=== PATIENT | male | born 1985 | race Hispanic/Latino ===

== ENCOUNTER 2024-08-29 11:11 | Emergency (ER) | payer OTHER, SELFPAY ==
[2024-08-29] VITALS (7 sets, daily range): BP systolic 103–128; BP diastolic 52–85; BMI 33.5
--- NOTE | 2024-08-29 11:48 | EDRN ---
Pt arrives for high BP, swelling of his agatha feet, head pressure, pressure all around head that has been going on keegan 1.5 weeks. On nifedipine. SOB. Pt has chronic inflammatory polyneuropathy.
--- NOTE | 2024-08-29 11:53 | EDRN ---
Marco Antonio Self APARTMENT COORDINATOR in room w/ -pt
--- NOTE | 2024-08-29 12:00 | ED.GENMED ---
History of Present Illness
<TATO Blount - Last Filed: 08/29/24 16:41>
General
Chief Complaint: Blood Pressure Problem
Source: patient
Exam Limitations: none
Time Seen by Provider: 08/29/24 11:35
Nursing documentation reviewed up to this point in time: agreed with
History of Present Illness
History of Present Illness:
Patient is a 39-year-old male past medical history of chronic immune demyelinating polyneuropathy presents to the ER for evaluation. bedside reports patient has had a headache shortness of breath dizziness for the past week and a half
associate with lower extremity swelling. She reports he has noticed swelling to the lateral ankles. He has also had some blurry vision and light sensitivity. He was seen by family doctor a week ago and started on nifedipine. Today is
concerned because symptoms are not getting better. They called PCP recommended they come to the ER.
He complains of a headache presently and does not have a history of headaches.
Patient is not currently treated for his chronic immune demyelinating polyneuropathy. In his past he did receive IVIG and had plasmapheresis.
He is not a smoker, no alcohol use in 6 months.
No cardiac history.
Past History
<TATO Blount - Last Filed: 08/29/24 16:41>
Past History
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
ED Past Surgical History: Appendectomy
Social History
Personal:
Living: with family
Employment: Employed
Review of Systems
<TATO Blount - Last Filed: 08/29/24 16:41>
Review of Systems
Allergies reviewed?: Yes
All Other Systems: ROS reviewed and negative except as documented in HPI and ROS
Constitutional: Reports no symptoms
EENT: Reports other (blurred vision)
Respiratory: Reports trouble breathing
Cardiac: Reports other (off/on mild chest pain )
ABD/GI: Reports nausea
: Reports no symptoms
Musculoskeletal: Reports other (swelling to ankles)
Skin: Reports no symptoms
Neurological: Reports headache
Psychiatric: Reports no symptoms
Phy Exam
<TATO Blount - Last Filed: 08/29/24 16:41>
General Physical Exam
General Presentation: no apparent distress
General age: appears stated age
General Skin: warm and dry
General Habitus: normal
General Mental: alert
General Hydration: appears well hydrated
ENT Exam
ENT Exam: EOMI
Eye Exam
Eye Exam: PERRL and EOMI
Eye Exam General: PERRL: bilateral and EOM intact: bilateral
Pupil Exam: Bilateral: round and reactive
Cardiovascular Exam
Cardiovascular Exam: regular rate/rhythm, no murmur and normal peripheral pulses
Pulmonary Exam
Pulmonary Exam: lungs clear and no respiratory distress
Neurological Exam
Neurological Exam: alert and oriented x3
Musculoskeletal Exam
Musculoskeletal Exam: other (mild b/l ankle swelling )
Skin Exam
Skin Exam: normal color and warm/dry
Psychiatric Exam
Psychiatric Exam: normal mood/affect
Course
<TATO Blount - Last Filed: 08/29/24 16:41>
Orders/Labs/Results
Orders:
Orders
08/29/24 11:59
CT Head W/o Iv Contrast Urgent
Comment:
Reason For Exam: headache
08/29/24 12:00
Electrocardiogram (*1) Stat
Reason for Study: Other
Other Reason for Exam: chest pain
Cardiac Monitoring- Treatment ONCE
EKG- Treatment ONCE
IV Insert/Care/Rem.- Treatment PRN
Diphenhydramine [Benadryl] 25 mg IV NOW STA
Metoclopramide [Reglan] 10 mg IV NOW STA
CR Chest - 2 Views Urgent
Comment:
Reason For Exam: sob
08/29/24 12:14
Complete Blood Count/With Diff Urgent
Comprehensive Metabolic Panel Urgent
NT-proBNP Urgent
Troponin I Urgent
Abnormal Lab Results
08/29/24
12:14
WBC 11.6 H 10^3/uL
(4.8-10.8)
MCH 31.1 H pg
(27.0-31.0)
Abs Immat Gran (auto) 0.1 H 10^3/uL
(0-0.05)
Absolute Neuts (auto) 8.0 H 10^3/uL
(1.4-6.5)
Absolute Monos (auto) 1.0 H 10^3/uL
(0.1-0.6)
Immature Gran % 0.9 H %
(0-0.5)
Lymphocytes % 19.4 L %
(20.5-51.1)
Chloride 109 H mmol/L
(98-107)
Glucose 111 H mg/dl
(70-99)
08/29/24 12:14
08/29/24 12:14
Vital Signs
Initial and Last Documented VS:
Initial Vital Signs
Temp Pulse Resp BP Pulse Ox
97.3 F 87 18 128/85 97
08/29/24 11:16 08/29/24 11:16 08/29/24 11:16 08/29/24 11:16 08/29/24 11:16
Last Documented Vital Signs
Temp Pulse Resp BP Pulse Ox
97.3 F 80 22 124/84 98
08/29/24 11:16 08/29/24 14:45 08/29/24 14:45 08/29/24 15:00 08/29/24 15:00
Customer Assistant consulted with Physician
Customer Assistant consulted with physician?: Yes
Name of Physician Consulted: Man
<Sebastian Conway, DO - Last Filed: 08/29/24 14:49>
Orders/Labs/Results
Orders:
Orders
08/29/24 11:59
CT Head W/o Iv Contrast Urgent
Comment:
Reason For Exam: headache
08/29/24 12:00
Electrocardiogram (*1) Stat
Reason for Study: Other
Other Reason for Exam: chest pain
Cardiac Monitoring- Treatment ONCE
EKG- Treatment ONCE
IV Insert/Care/Rem.- Treatment PRN
Diphenhydramine [Benadryl] 25 mg IV NOW STA
Metoclopramide [Reglan] 10 mg IV NOW STA
CR Chest - 2 Views Urgent
Comment:
Reason For Exam: sob
08/29/24 12:14
Complete Blood Count/With Diff Urgent
Comprehensive Metabolic Panel Urgent
NT-proBNP Urgent
Troponin I Urgent
Abnormal Lab Results
08/29/24
12:14
WBC 11.6 H 10^3/uL
(4.8-10.8)
MCH 31.1 H pg
(27.0-31.0)
Abs Immat Gran (auto) 0.1 H 10^3/uL
(0-0.05)
Absolute Neuts (auto) 8.0 H 10^3/uL
(1.4-6.5)
Absolute Monos (auto) 1.0 H 10^3/uL
(0.1-0.6)
Immature Gran % 0.9 H %
(0-0.5)
Lymphocytes % 19.4 L %
(20.5-51.1)
Chloride 109 H mmol/L
(98-107)
Glucose 111 H mg/dl
(70-99)
08/29/24 12:14
08/29/24 12:14
Vital Signs
Initial and Last Documented VS:
Initial Vital Signs
Temp Pulse Resp BP Pulse Ox
97.3 F 87 18 128/85 97
08/29/24 11:16 08/29/24 11:16 08/29/24 11:16 08/29/24 11:16 08/29/24 11:16
Last Documented Vital Signs
Temp Pulse Resp BP Pulse Ox
97.3 F 80 22 124/84 98
08/29/24 11:16 08/29/24 14:45 08/29/24 14:45 08/29/24 15:00 08/29/24 15:00
<TATO Blount - Last Filed: 08/29/24 16:41>
MDM/Problems Addressed
MDM/Problems Addressed:
As documented patient is a 39-year-old male with past medical history as documented above presents for evaluation. He has not felt well for the past week complaining of dizziness elevated blood pressure shortness of breath he noted mild swelling to
lower extremities and has had a headache and blurry vision. Patient presents awake alert in no acute distress he is nontoxic no meningismus no recent fever or chills. His lungs are clear on exam there is no obvious swelling. He is afebrile white
count very minimally elevated stable hemoglobin unremarkable chemistries.
Troponin BNP negative chest x-ray negative CT negative.
Patient received medications for headache and feeling much better.
No acute concerning findings during patient's workup here in the ER however will need outpatient follow-up family doctor. Pt is stable for d/c home.
<TATO Blount - Last Filed: 08/29/24 16:41>
*Radiology
Radiology exam reviewed: radiology read reviewed
*Pulse Oximetry
Patient hypoxic: no
*EKG
Interpreted by ED Provider?: Yes
Interpretation: abnormal
Comparison EKG: no comparison EKG present
Heart Rate: 75
Rate: normal
Rhythm: sinus
Ischemia: non-specific ST changes
*Critical Care Note
Total Time (30-74mins, 75-104mins- exclusive of procedures): Not Applicable
ED Attending Note
<TATO Blount - Last Filed: 08/29/24 16:41>
-
Portions of this chart may have been created with voice recognition software.� Occasional wrong word or��sound alike� substitutions may have occurred due to the inherent limitations of voice recognition software.
<Sebastian Conway DO - Last Filed: 08/29/24 14:49>
ED Attending Note
Patient seen and examined by attending physician: Yes
I performed the substantive portion of visit, reviewed & personally made and approve the management plan that is documented in note by myself or SUNI.: Yes
ED Attending Note:
I agree with Krystle's note
Patient presents complaining of headache, dizziness, shortness of breath, and some swelling in the lower extremities. No focal neurologic deficits. No chest pain
General: Awake, Alert, Oriented X3. No acute distress.
Vitals: unremarkable
Head: Atraumatic
Eyes: Pupils equal, EOMI
Throat: Airway intact, no exudates
Neck: Trachea midline
Lungs: Clear and equal b/l
Heart: Regular rate, no murmurs
Abd: Soft, Nontender, No pulsatile mass
Neuro: Nonfocal
Skin: Warm, dry, no rash
Extremities: pulses equal b/l, trace edema
Patient had been given Reglan and Benadryl for his headache. His headache is essentially resolved. He does not feel short of breath at this time. His physical exam is not suggestive of a unstable process nor does he have any significant
abnormalities on his radiographic or blood studies. Patient is suitable for discharge and outpatient follow-up.
Discharge Plan
Departure
Patient Disposition: Home (Routine Discharge)
Date of Disposition: 08/29/24
Time of Disposition: 14:54
Patient with high blood pressure during this ER visit?: No
Condition: Fair
Covid-19: Not Applicable
Discharge Problem:
Headache
Instructions: Headache in adults - ED discharge instructions
Prescriptions:
No Action
prednisone 10 MG tablet
10 mg PO .TAPER Qty: 30 0RF
Rx Instructions:
Take 50mg daily for 2 days, 40mg daily for 2 days, 30mg daily for 2 days, 20mg daily for 2 days, 10mg daily for 2 days
albuterol sulfate 1 PUFF HFA aerosol inhaler
2 puff inhalation QIDPRN PRN (Reason: SOB) Qty: 1 0RF
Referrals:
Kait Greene MD [Family Provider] -
Activity Restrictions/Additional Instructions:
As discussed your workup in the ER was unremarkable. Please follow-up with your family doctor for continued evaluation of symptoms and return if any worsening of symptoms.
Interventions
Interventions:
*Risk Screen - Suicide Last Done: 08/29/24 11:16
*General Assessment Last Done: 08/29/24 11:46
*Neglect/Abuse Screening Last Done: 08/29/24 11:16
*ED- Fall Risk Assessment Last Done: 08/29/24 11:46
*ED COVID-19 Vaccine History Last Done: 08/29/24 11:46
*Nursing Disposition Last Done: 08/29/24 15:15
ED- Cardiac Assessment Last Done: 08/29/24 11:57
ED- Neurological Assessment Last Done: 08/29/24 11:57
ED- Pulmonary Assessment Last Done: 08/29/24 11:57
ED-Skin Assessment Last Done: 08/29/24 11:57
Discharge Date and Time
Discharge Date/Time: 08/29/24 15:27
Print Language: SLOVENIAN
[2024-08-29] MEDS: REGLAN 10 MG IV (12:15)
[2024-08-29] MEDS: BENADRYL 25 MG IV (12:15)
[2024-08-29 12:31] LABS: % Basophils 0.3 % (0-2); % Eosinophils 1.8 % (0-6); % Immature Granulocytes 0.9 % (0-0.5); % Lymphocytes 19.4 % (20.5-51.1); % Monocytes 8.5 % (1.7-9.3); % Neutrophils 69.1 % (42.2-75.2); Absolute Eosinophils 0.2 10^3/uL (0-0.7); Absolute Immature Granulocytes 0.1 10^3/uL (0-0.05); Absolute Lymphocytes 2.3 10^3/uL (1.2-3.4); Hemoglobin 16.6 g/dL (13.0-18.0); Mean Corp Hgb Conc. 36.1 g/dL (33.0-37.0); Mean Corpuscular Hgb 31.1 pg (27.0-31.0); Mean Corpuscular Volume 86.3 fL (80.0-94.0); Mean Platelet Volume 9.9 fL (7.4-10.4); Nucleated Red Blood Cells % 0 % (-); Platelet Count 241 10^3/uL (130-400); Red Blood Cell Count 5.33 10^6/uL (4.70-6.10); Red Cell Dist. Width 13.2 % (11.5-14.5); White Blood Cell Count 11.6 10^3/uL (4.8-10.8)
--- NOTE | 2024-08-29 12:34 | EDRN ---
Pt OOB to BR at this time.
[2024-08-29 12:56] LABS: NT-proBNP < 20.0 pg/ml; Troponin I < 0.012 ng/ml
[2024-08-29 13:40] LABS: ALT (SGPT) 44 U/L (0-50); AST (SGOT) 27 U/L (17-59); Albumin 4.3 g/dl (3.5-5.0); Alkaline Phosphatase 72 U/L (38-126); Blood Urea Nitrogen 14 mg/dl (9-20); Calcium 9.3 mg/dl (8.4-10.2); Carbon Dioxide 24 mmol/L (22-30); Chloride 109 mmol/L (98-107); Estimated Creatinine Clearance > 125 ml/min; Glucose 111 mg/dl (70-99); Potassium 4.2 mmol/L (3.5-5.1); Sodium 141 mmol/L (135-145); Total Bilirubin 0.8 mg/dl (0.2-1.3); Total Protein 7.8 g/dl (6.3-8.2); eGFR > 60.00
--- NOTE | 2024-08-29 14:32 | EDRN ---
Dr. Conway in to see pt per Marco Antonio GODWIN request.
--- NOTE | 2024-08-29 14:46 | EDRN ---
Dr. Conway in to see pt at this time.
== END 2024-08-29 15:27 | disposition home or self-care (01) ==
LOC: EMR 11:11
PROVIDERS: Nurse Practitioner; EMERGENCY PHYSICIAN Emergency Medicine; FAMILY PHYSICIAN Family Medicine
DX: R51.9 Headache, unspecified (principal); R42 Dizziness and giddiness; R06.02 Shortness of breath; Z90.49 Acquired absence of other specified parts of digestive tract
CPT/HCPCS: 99285; 96374; 96375; 70450; 71046; 80053; 83880; 84484; 85025; 93005